=== PATIENT | female | born 1945 | race African-American/Black ===

== ENCOUNTER 2025-03-13 14:19 | Inpatient (IN) | payer OTHER ==
[2025-03-13] MEDS ORDERED: Calcium Carbonate 500 MG ChewTAB PO PRN (14:43)
[2025-03-13] MEDS ORDERED: Magnesium 2 GM/50 ML(in water) 2 GM in Premix 1 BAG IVPB SCH (14:43)
[2025-03-13] MEDS ORDERED: dilTIAZem 30 MG TAB PO PRN (14:43)
[2025-03-13] MEDS ORDERED: Nitroglycerin 0.4 MG TAB (25 Tab Bottle) SL PRN (14:43)
[2025-03-13] MEDS ORDERED: Acetaminophen 325 MG TAB PO PRN ×2 (14:43→15:37)
[2025-03-13 16:10] VITALS: BMI 29.3
[2025-03-13 16:12] LABS: Troponin I 0.033 ng/mL (< 0.028)
[2025-03-13 16:37] LABS: Glucose, Urine (Dipstick) Normal (Negative); Leukocyte Negative (Negative); Protein, Urine (Dipstick) Negative (Neg-Trace); Specific Gravity, Urine 1.010 (1.005-1.030)
[2025-03-13] MEDS: Acetaminophen 325 MG TAB PO SCH ×2 (16:47→20:32)
[2025-03-13] MEDS: dilTIAZem 30 MG TAB PO SCH ×2 (16:47→21:15)
[2025-03-13 17:11] LABS: RBC/HPF 0-3 HPF (0-3); WBC/HPF 0-3 HPF (0-3)
[2025-03-13 17:12] LABS: Bacteria/HPF 2+ HPF (None Seen); Mucous/LPF 1+ LPF (<2+)
[2025-03-13] MEDS: Carvedilol 3.125 MG TAB PO SCH (17:38)
[2025-03-13 18:38] LABS: Troponin I 0.036 ng/mL (< 0.028)
[2025-03-14 04:58] LABS: #Basophils 0.05 10x3/uL (0.0-0.2); #Eosinophils 0.07 10x3/uL (0.0-0.5); #Monocytes 0.78 10x3/uL (0.0-1.1); #Neutrophils 4.77 10x3/uL (1.5-8.4); %Basophils 0.6 % (0.0-2.0); %Eosinophils 0.9 % (0.0-6.0); %Lymphocytes 26.9 % (18.0-47.0); %Monocytes 10.0 % (0.0-10.0); %Neutrophils 61.1 % (40.0-75.0); Hematocrit 33.8 % (34.9-44.5); Hemoglobin 10.8 g/dL (12.0-15.5); Mean Corpuscular Hemoglobin 27.6 pg (27.0-33.0); Mean Corpuscular Volume 86.4 fL (81.6-98.3); Platelet Count 198 10x3/uL (150-450); Red Blood Cell (RBC) Count 3.91 10x6/uL (3.90-5.03); White Blood Cell (WBC) Count 7.81 10x3/uL (3.5-10.5)
[2025-03-14 05:11] LABS: Anion Gap 13 mmol/L (10-20); BUN (Urea Nitrogen) 19 mg/dL (9.8-20.1); Calc. Creatinine Clearance 47 mL/min (70-130); Calcium 8.8 mg/dL (7.8-10.44); Carbon Dioxide 24 mmol/L (23-31); Chloride 108 mmol/L (98-107); Glucose 73 mg/dL (83-110); Magnesium 2.2 mg/dL (1.6-2.6); Potassium 4.7 mmol/L (3.5-5.1); Sodium 140 mmol/L (136-145)
[2025-03-14] MEDS: Aspirin 81 mg Enteric Coated Tablet PO SCH (09:36)
[2025-03-14] MEDS: Amiodarone 200 MG TAB PO SCH (09:36)
[2025-03-14] MEDS: Rosuvastatin 20 MG TAB PO SCH (21:16)
[2025-03-15 05:41] LABS: #Basophils 0.05 10x3/uL (0.0-0.2); #Eosinophils 0.14 10x3/uL (0.0-0.5); #Monocytes 0.72 10x3/uL (0.0-1.1); #Neutrophils 4.33 10x3/uL (1.5-8.4); %Basophils 0.7 % (0.0-2.0); %Eosinophils 1.9 % (0.0-6.0); %Lymphocytes 27.2 % (18.0-47.0); %Monocytes 9.9 % (0.0-10.0); %Neutrophils 59.9 % (40.0-75.0); Hematocrit 32.2 % (34.9-44.5); Hemoglobin 10.4 g/dL (12.0-15.5); Mean Corpuscular Hemoglobin 27.7 pg (27.0-33.0); Mean Corpuscular Volume 85.9 fL (81.6-98.3); Platelet Count 220 10x3/uL (150-450); Red Blood Cell (RBC) Count 3.75 10x6/uL (3.90-5.03); White Blood Cell (WBC) Count 7.24 10x3/uL (3.5-10.5)
[2025-03-15 05:55] LABS: Anion Gap 11 mmol/L (10-20); BUN (Urea Nitrogen) 16 mg/dL (9.8-20.1); Calc. Creatinine Clearance 49 mL/min (70-130); Calcium 8.6 mg/dL (7.8-10.44); Carbon Dioxide 24 mmol/L (23-31); Chloride 108 mmol/L (98-107); Glucose 86 mg/dL (83-110); Magnesium 2.1 mg/dL (1.6-2.6); Potassium 4.4 mmol/L (3.5-5.1); Sodium 139 mmol/L (136-145)
[2025-03-15] MEDS: Aspirin Chewable 81 MG TAB PO SCH (12:51)
[2025-03-15] MEDS: Senokot S 8.6-50 MG TAB PO PRN (12:54)
[2025-03-16 15:30] VITALS: BP 148/65; TEMP 98.1
== END 2025-03-16 19:30 | disposition home or self-care (01) | DRG 309 ==
LOC: CSHTELE 14:42 → OBSVTOIN 03-16 09:41
PROVIDERS: ADMIT Internal Medicine; ATTEND Internal Medicine
DX: I49.5 Sick sinus syndrome (principal); I48.4 Atypical atrial flutter; I50.32 Chronic diastolic (congestive) heart failure; N18.4 Chronic kidney disease, stage 4 (severe); I25.10 Atherosclerotic heart disease of native coronary artery without angina pectoris; Z95.818 Presence of other cardiac implants and grafts; I12.9 Hypertensive chronic kidney disease with stage 1 through stage 4 chronic kidney disease, or unspecified chronic kidney disease; E11.22 Type 2 diabetes mellitus with diabetic chronic kidney disease; E03.9 Hypothyroidism, unspecified; E78.5 Hyperlipidemia, unspecified; E66.9 Obesity, unspecified; E04.2 Nontoxic multinodular goiter; F10.90 Alcohol use, unspecified, uncomplicated; Z87.891 Personal history of nicotine dependence; Z83.3 Family history of diabetes mellitus; E83.42 Hypomagnesemia; E05.90 Thyrotoxicosis, unspecified without thyrotoxic crisis or storm; R79.89 Other specified abnormal findings of blood chemistry; I48.0 Paroxysmal atrial fibrillation; Z79.899 Other long term (current) drug therapy; Z79.82 Long term (current) use of aspirin; I49.3 Ventricular premature depolarization; R10.31 Right lower quadrant pain; R10.32 Left lower quadrant pain; Z90.711 Acquired absence of uterus with remaining cervical stump; Z79.890 Hormone replacement therapy; Z95.5 Presence of coronary angioplasty implant and graft; R53.1 Weakness; R42 Dizziness and giddiness; Z79.02 Long term (current) use of antithrombotics/antiplatelets
CPT/HCPCS: 36415; 36416; 72190; 80048; 81001; 83735; 84443; 85025; 93005; 93010; 94760; G0378; J7120